=== PATIENT | female | born 1975 | race Caucasian/White ===

== ENCOUNTER 2016-11-27 20:29 | Inpatient (IN) | payer OTHER ==
[2016-11-27 20:31] VITALS: BMI 37.2
[2016-11-27 21:37] LABS: BASO % 0.2 % (0.0-2.0); EOS # 0.1 K/uL (0.0-0.7); EOS % 0.8 % (0.0-4.0); LYMPH # 1.6 K/uL (1.0-4.3); LYMPH % 19.9 % (20.0-40.0); MEAN CELL VOLUME 84.5 fl (81.0-99.0); MEAN CORPUSCULAR HEMOGLOBIN 28.3 pg (27.0-31.0); MEAN CORPUSCULAR HGB CONC 33.5 g/dL (33.0-37.0); MEAN PLATELET VOLUME 9.5 fl (7.2-11.7); MONO % 12.2 % (0.0-10.0); NEUT # 5.3 K/uL (1.8-7.0); NEUT % 66.9 % (50.0-75.0); RED CELL DISTRIBUTION WIDTH 14.7 % (11.5-14.5); WHITE BLOOD COUNT 7.9 K/uL (4.8-10.8)
[2016-11-28] MEDS ORDERED: Lactated Ringer's 1,000 ML IV ONE (13:15)
[2016-11-28] MEDS ORDERED: Bupivacaine HCl 0.25% PF (10 ml) Inj ONE ×2 (13:57→23:08)
[2016-11-28] MEDS ORDERED: Fentanyl/Bupivacaine HCl 250 ML EPI ONE (13:57)
[2016-11-28] MEDS ORDERED: EPINEPHrine 1 mg/ml (1:1000) Inj ONE (15:31)
[2016-11-28] MEDS ORDERED: Lidocaine 2% PF (10 ml) Amp ONE ×2 (16:40→22:56)
[2016-11-28] MEDS: Lactated Ringer's 1,000 ML IV SCH (16:59)
[2016-11-29] MEDS: Lactated Ringer's 1,000 ML IV SCH ×3 (00:30→16:30)
[2016-11-29] MEDS ORDERED: Fentanyl/Bupivacaine HCl 250 ML EPI ONE (11:48)
--- NOTE | 2016-11-29 12:20 | OBPN ---
Datetime: 11/29/2016 12:17 IP Progress Impression: Normal progression of labor IP Procedures: Sterile Vag Exam IP Progress Plan: Continue present management Membranes, Provider: Ruptured Amniotic Fluid Color, Provider: Clear FHR - Baseline A Provider: 130 IP Progress Note Comment: 40 yo G1 at 37+6 wks for induction for oligohydramnios, s/p cervidil, now on pitocin GBS negative, FHT reassuring Continue current management NICHD Accel Fetus A IP Provider: 15X15 FHR Category Provider Fetus A: Category I NICHD Variability Prov Fetus A: Moderate 6-25bpm Dilatation, Provider: 7 Effacement, Provider: 100 Station, Provider: -1 NICHD Decel Fetus A IP Provider: None Datetime: 11/27/2016 20:56 Vital Signs Provider: Reviewed
[2016-11-29] MEDS: Alum-Mag Hydrox-Simethicone Susp (30 mL) PO ONE ×2 (15:15→15:18)
--- NOTE | 2016-11-29 20:40 | US ---
EXAM: US Duplex Bilateral Lower Extremity Veins CLINICAL HISTORY: 40 years old, female; Signs and symptoms; Other: Cold lt foot; Additional info: Left foot in cold TECHNIQUE: Real-time ultrasound scan of the veins of the bilateral lower extremities with color Doppler flow, spectral waveform analysis and compression. COMPARISON: No relevant prior studies available. FINDINGS: Right deep veins: Normal color and spectral Doppler flow. Normal compressibility. No deep vein thrombosis from common femoral to popliteal vein. Right superficial veins: Unremarkable. Left deep veins: Normal color and spectral Doppler flow. Normal compressibility. No deep vein thrombosis from common femoral to popliteal vein. Left superficial veins: Unremarkable. Soft tissues: No popliteal cyst. IMPRESSION: 1. No evidence of DVT within the lower extremities.
[2016-11-29] MEDS ORDERED: Oxytocin 30 units/LR 500ML 30 U/500 ML BAG IV ONE (21:00)
[2016-11-29] MEDS ORDERED: ceFAZolin 2 GM in Sodium Chloride 0.9% 100 ML IVPB ONE (21:06)
--- NOTE | 2016-11-29 21:24 | OBPN ---
Datetime: 11/29/2016 21:17 IP Progress Impression: Arrest of dilatation/descent IP Informed Consent Obtain: Section Delivery; Risks, Benefits and Alternatives Discussed IP Procedures: Sterile Vag Exam IP Progress Plan: Deliver- Section Amniotic Fluid Color, Provider: Clear FHR - Baseline A Provider: 140 IP Progress Note Comment: 40 yo G1 at 37+6 wks for induction of labor for oligohydramnios w/ arrest of dilation at 9 cm Discussed w/ pt and her family. Consents signed. Vital Signs Provider: Reviewed NICHD Accel Fetus A IP Provider: 15X15 FHR Category Provider Fetus A: Category II NICHD Variability Prov Fetus A: Moderate 6-25bpm Dilatation, Provider: 9 Effacement, Provider: 100 Station, Provider: -1 NICHD Decel Fetus A IP Provider: Late
[2016-11-29] MEDS ORDERED: Lidocaine 2% PF (10 ml) Amp ONE (21:47)
[2016-11-29] MEDS ORDERED: ePHEDrine 50 mg/ml Inj ONE (21:47)
[2016-11-29] MEDS ORDERED: Morphine 5 mg/10 ml preservative-free Inj(Duramorph) ONE (22:14)
[2016-11-29] MEDS ORDERED: Oxycodone/Acetaminophen 5/325 mg Tab PO PRN ×2 (23:12)
[2016-11-29] MEDS ORDERED: Influenza Vaccine 18yr & older 0.5 ML/45 MCG SYR IM ONE (23:15)
[2016-11-29] MEDS ORDERED: DiphenhydrAMINE 50 mg/ml Inj IVP PRN (23:24)
[2016-11-29] MEDS ORDERED: Naloxone 0.4 mg/ml Inj (Adult) IVP PRN (23:24)
--- NOTE | 2016-11-29 23:41 | OBDS ---
DELIVERY PERSONNEL Delivery Doctor: Dayanara Palacio MD Ice Cream Van Vendor: Leah Freeman RN Anesthesiologist: Dayanara Cannon MD Resident: KONRAD Anderson MATERNAL INFORMATION Delivery Anesthesia: Epidural Medications in Delivery: Pitocin Estimated Blood Loss (ml): 800 Placenta Cultured: No Maternal Complications: None Provider Comments: Pre-op dx: 40 yo G1 at 37+6 wks w/ arrest of dilation at 9 cm Post-op dx: Same Procedure: Primary low transverse section Surgeon: Pia Dulite Machine Bluer: Dr. Rene Anesthesiologist: Dr. Cannon Anesthesia: Epidural Findings: Viable male infant delivered through clear fluid at 22:18. Apgars 9 and 9. Weight 3495 gms, 7#11.3 Nl appearing uterus, tubes and ovaries. Urine in the winter appeared bloood-tinged prior to the case. Urine appeared bloody during the case. 50 cc sterile milk placed into winter to eval bladder w/ no spillage of milk into the abdomen. Uri ne appeared more clear at the end of the case. LABOR SUMMARY EDC: 12/14/2016 00:00 No. Babies in Womb: 1 Attempted: No Labor Anesthesia: Epidural LABOR INFORMATION Reason for Induction: Oligohydramnios Onset of Labor: 11/29/2016 15:00 Cervical Ripening Agents: Cervidil (Annotations: discontinued at this time) Oxytocin: Augmentation (Annotations: Data stored by N on behalf of user) Group B Beta Strep: Negative Antibiotics # of Doses: none Antibiotics Time of Last Dose: none Steroids Given: None Reason Steroids Not Administered: Not Applicable MEMBRANES Membranes Rupture Method: Spontaneous Rupture of Membranes: 11/28/2016 11:10 Length of Rupture (hrs): 35.13 Amniotic Fluid Color: Clear Amniotic Fluid Amount: Moderate Amniotic Fluid Odor: Normal STAGES OF LABOR Stage 3 hrs: 0 Stage 3 min: 1 Total Time in Labor hrs: 7 Total Time in Labor min: 19 CSECTION DELIVERY Primary Indication: Arrest of Dilatation CSection Urgency: Non Elective CSection Incidence: Primary Labor: Labor Elective: Nonelective CSection Incision: Lower Uterine Transverse BABY A INFORMATION Delivery Date/Time: 11/29/2016 22:18 Method of Delivery: Born in Route : No : N/A Forceps: N/A Vacuum Extraction: N/A Shoulder Dystocia : No SHOULDER DYSTOCIA BABY A Delivery Date/Time: 11/29/2016 22:18 PRESENTATION/POSITION BABY A Presentation: Cephalic Cephalic Presentation: Vertex PLACENTA INFORMATION BABY A Placenta Delivery Time : 11/29/2016 22:19 Placenta Method of Delivery: Spontaneous Placenta Status: Delivered SCORES BABY A Heart Rate 1 min: >100 bpm Resp Effort 1 min: Good Cry Reflex Irritability 1 min: Cough or Sneeze or Pulls Away Muscle Tone 1 min: Active Motion Color 1 min: Body [place], Extremities Blue Resuscitation Effort 1 min: Tactile Stimulation; Oxygen SCORE 1 MIN: 9 Heart Rate 5 min: >100 bpm Resp Effort 5 min: Good Cry Reflex Irritability 5 min: Cough or Sneeze or Pulls Away Muscle Tone 5 min: Active Motion Color 5 min: Body [place], Extremities Blue Resuscitation Effort 5 min: N/A SCORE 5 MIN: 9 INFANT INFORMATION BABY A Gestational Age at Delivery: 37.6 Gestational Status: Term Infant Outcome : Liveborn Infant Condition : Stable Infant Sex: Male IDENTIFICATION/MEDS BABY A ID Band Number: [id number] ID Band Location: Left Leg; Left Arm WEIGHT/LENGTH BABY A Infant Birthweight (gms): 3495 Infant Weight (lb): 7 Infant Weight (oz): 11 CORD INFORMATION BABY A No. Cord Vessels: 3 Nuchal Cord : N/A Nuchal Cord Other: n/a True Knot: n/a Infant Cord pH Baby Arterial: n/a Infant Cord pH Baby Venous: n/a Cord Blood Taken: Yes Banking/Donate Info: n/a Infant Suction: Mouth; Nose; Pharynx
[2016-11-30] MEDS ORDERED: Lactated Ringer's 1,000 ML IV SCH ×2 (00:44→01:46)
[2016-11-30] MEDS ORDERED: Naloxone 0.4 mg/ml Inj (Adult) IVP PRN ×2 (00:44→01:46)
[2016-11-30] MEDS ORDERED: DiphenhydrAMINE 50 mg/ml Inj IVP PRN ×2 (00:44→01:46)
[2016-11-30] MEDS ORDERED: Oxycodone/Acetaminophen 5/325 mg Tab PO PRN ×4 (00:44→01:46)
--- NOTE | 2016-11-30 06:01 | OP ---
PROCEDURE DATE: 11/29/2016 PREOPERATIVE DIAGNOSIS: A 40-year-old G1 at 37 weeks and 6 days with arrest of dilation at 9 cm. POSTOPERATIVE DIAGNOSIS: A 40-year-old G1 at 37 weeks and 6 days with arrest of dilation at 9 cm. PROCEDURE: Primary low-transverse section. SURGEON: Miroslava Palacio MD PROFESSIONAL HOUSING CONSULTANT: Gerardo Rene DO. Dr. Rene was the surgical technology instructor and participated in the surgery for the entire duration of the case. He helped create exposure. He also helped maintain hemostasis, operated throughout the case on the side of the patient that was across from him, and assisted in the delivery of the infant by applying fundal pressure. This case could not have been completed without hi assistance. TYPE OF ANESTHESIA: Epidural. ANESTHESIA ADMINISTERED BY: Omega Cannon MD FINDINGS: Viable male infant delivered through clear fluid at 22:18. 's 9 and 9 at 1 and 5 minutes respectively and weight was 3495 grams or 7 pounds 11.3 ounces. Uterus with small fibroids, normal appearing tubes and ovaries. Urine in the Cooper appeared blood-tinged prior to the case. Urine in the Cooper appeared bloody during the case. 50 mL of sterile milk were placed into the Cooper to evaluate the integrity of the bladder with no spillage of milk into the abdomen. The urine appeared more clear at the end of the case. DESCRIPTION OF PROCEDURE: The patient was taken to the operating room and the epidural was bolused. A time-out was done. She was then prepped and draped in the normal sterile fashion in the dorsal supine position with a leftward tilt. The epidural was tested and found to be adequate. A Pfannenstiel skin incision was then made with scalpel and carried through to the underlying layer of fascia with Bovie. The fascia was incised in the midline and incision was extended laterally with the Bovie. The inferior aspect of the fascial incision was then grasped with Reyna clamp and elevated the underlying rectus muscles were dissected off bluntly. Attention was then turned to the inferior aspect of this incision, which is in similar fashion was grasped, tented up with Reyna clamp. The rectus muscles were dissected off bluntly with the Bovie. The rectus muscles were then in the midline. The perineum was identified, tented up and entered sharply with Metzenbaum. The perineal incision was then extended superiorly and inferiorly with good visualizations. The bladder blade was then inserted and vesicouterine peritoneum was identified, grasped, pickups, and entered sharply with the Metzenbaum scissors. The incision was then extended laterally and bladder flap was created digitally. The bladder blade was then reinserted. The lower uterine segment was incised in transverse fashion with the scalpel. The uterine incision was then extended in a cephalocaudal direction digitally. The bladder blade was removed. The head delivered atraumatically. The nose and mouth were suctioned with bulb suction. The cord was clamped and cut. The was handed up to the waiting wood heel flap inserter. The cord blood was collected. The placenta was then delivered as the uterus was massaged. The uterus was then exteriorized and cleared of all clots and debris with a dry, sponge curettage. The uterine incision was then repaired with 0 Vicryl in a running lock fashion. There was a pumping bleeder on the left side of the uterus, inferior to the incision, which was controlled with a figure-of eight of 0-Vicryl. The abdomen was then well irrigated. The uterus was returned to the abdomen. The anesthesiologist then pointed out that the urine in the Cooper was bloody. It was decided to inject 50 mL of sterile milk into the Cooper to evaluate the integrity of the bladder. There was no spillage of the milk into the abdomen. The gutters were cleared of all clots and the peritoneum was then closed with chromic. A single stitch of 0 chromic was used to closed the rectus muscle to approximate the rectus muscle. There was a button hole noted in each the superior and inferior portions of the fascia which were each repaired w/ a figure-of -eight of 0-Vicryl. The fascia was then re- approximated with 0 Vicryl in running fashion. The space of the fat was closed with running of 2-0 plane gut. The skin was then closed in subcuticular fashion using 4-0 Monocryl. The patient tolerated the procedure well. Sponge, lap and needle counts were correct. The patient received 2 grams of Ancef prior to the procedure. The patient was taken to the recovery room in stable condition. Miroslava Palacio MD [facility] # [id number] AYO
--- NOTE | 2016-11-30 07:30 | OBPPN ---
Datetime: 11/30/2016 07:24 PP Pain Prov: Within normal limits PP Nausea Prov: Denies PP Flatus Prov: No PP Abdomen/Uterus Prov: Normal PP Lochia Prov: Normal PP Extremities Prov: Normal PP C/S Incision Prov: Normal PP Progress Prov: Normal PP Comments Phys Exam Prov: Incision w/ clean dry bandage in place PP Impression Prov: Normal progression PP Plan Prov: Continue present management PP Progress Note Prov: POD 1 s/p primary c/s for arrest of dilation at 9 cm, doing well, tolerating clears, breast feeding Remove bandage today PO pain meds Advance diet as tolerated OOB today Vital Signs Provider PP: Reviewed
[2016-11-30 08:08] LABS: MEAN CELL VOLUME 84.6 fl (81.0-99.0); RED CELL DISTRIBUTION WIDTH 14.7 % (11.5-14.5); WHITE BLOOD COUNT 14.6 K/uL (4.8-10.8)
[2016-11-30] MEDS ORDERED: Influenza Vaccine 18yr & older 0.5 ML/45 MCG SYR IM ONE (20:30)
--- NOTE | 2016-11-30 22:08 | OBPPN ---
Datetime: 11/30/2016 22:01 PP Pain Prov: Within normal limits PP Nausea Prov: Denies PP Flatus Prov: Yes PP BM Prov: No PP Heart Prov: Normal PP Abdomen/Uterus Prov: Normal PP Comments Phys Exam Prov: incision c/d/i PP Progress Note Prov: Called by Dr. Palacio reg pt who desires d/c due to who was transferre d to [facility] s: states pain well controlled with motrin, uses percocet sparingly. no c/o. pt states she desires d/c tomorrw @ 6am. o: pfannensteil incision: c/d/i I: pod1 CD doing well P:d/c home tomorrow rx in chart for motrin 6oomg #30, percocet 5/325 #28, senokot s and pnv. Vital Signs Provider PP: Within Normal Limits
--- NOTE | 2016-12-01 06:37 | OBDCSUM ---
Datetime: 11/30/2016 22:58 Discharged to, Provider: Home Follow up at, Provider: [facility] Disch Instr Activity: Normal activity; May be up to bathroom; May be up for meals; May Shower Disch Instr Diet: Regular Discharge Diet restrict Prov: milk intolerance Discharge Instructions, Provider: Specific instructions as noted Discharge Diagnosis, Provider: Term Delivered Follow up in weeks, Provider: 10days Disch Referrals: None Discharge Instruct Comment, Prov: postop and pp Contraception discussed, Prov: No (Annotations: Data stored by CPN on behalf of user) Disch Activity Restrictions: No exercising; No lifting; No driving; No sexual activity; Nothing in v agina - [place], tampons, douche Discharge Comment, Provider: Wound care and hygiene reviewed with patient. Patient desires early discharge due to who was transferred to [facility]. Rx given for Percocet 5 dispense 28 tablets; Motrin 600 mg dispensed 30 tablets with refill and pr enatal vitamins. Patient was advised to continue taking her iron supplementation. (Annotations: Data stored by CPN on behalf of user)
--- NOTE | 2016-12-01 08:29 | OBPPN ---
Datetime: 12/01/2016 08:16 PP Pain Prov: Within normal limits PP Nausea Prov: Denies PP Flatus Prov: No PP Abdomen/Uterus Prov: Normal PP Lochia Prov: Normal PP C/S Incision Prov: Normal PP Progress Prov: Normal PP Comments Phys Exam Prov: Incision: intact w/ steri strips PP Impression Prov: Normal progression PP Plan Prov: Discharge PP Progress Note Prov: POD 2 s/p primary c/s for arest of dilation, doing well, wants to go home Baby transferred to [facility] for high bilirubin Discharge home today Vital Signs Provider PP: Reviewed
[2016-12-01 16:07] VITALS: BP 121/81; PULSE 85; RESP 20; TEMP 98.3; O2SAT 98
== END 2016-12-01 10:55 | disposition home or self-care (01) | DRG 766 ==
LOC: H.L&D 20:44 → H.OB/GYN 11-30 01:45
PROVIDERS: ADMIT Obstetrics & Gynecology; ATTEND Obstetrics & Gynecology
PROC: 4A1HXCZ Monitoring of Products of Conception, Cardiac Rate, External Approach (ICD-10-PCS; 2016-11-27)
PROC: 10D00Z1 Extraction of Products of Conception, Low, Open Approach (ICD-10-PCS; principal; 2016-11-29)
PROC: 3E0234Z Introduction of Serum, Toxoid and Vaccine into Muscle, Percutaneous Approach (ICD-10-PCS; 2016-11-30)
DX: O41.03X0 Oligohydramnios, third trimester, not applicable or unspecified (principal); D25.9 Leiomyoma of uterus, unspecified; O62.1 Secondary uterine inertia; O34.13 Maternal care for benign tumor of corpus uteri, third trimester; Z3A.37 37 weeks gestation of pregnancy; Z37.0 Single live birth; O09.523 Supervision of elderly multigravida, third trimester; Z23 Encounter for immunization; Z91.041 Radiographic dye allergy status